=== PATIENT | female | born 1945 | race Caucasian/White ===

== ENCOUNTER 2023-02-11 11:11 | Day surgery (SDC) | payer MEDICARE ==
[2023-02-11] MEDS ORDERED: LACTATED RINGERS 1,000 ML IV ONE (11:40)
[2023-02-11 11:52] VITALS: TEMP 98
[2023-02-11] MEDS ORDERED: fentaNYL (PF) 50 MCG/ML 2 ML AMP ONE (11:54)
[2023-02-11] MEDS ORDERED: MIDAZOLAM 2 MG/2 ML VIAL ONE (11:54)
[2023-02-11] MEDS ORDERED: LACTATED RINGERS 1,000 ML IV SCH (12:00)
[2023-02-11] MEDS ORDERED: ROPIVACAINE 5MG/ML 20ML VIAL ONE (12:00)
[2023-02-11] MEDS ORDERED: IV FLUID CONTINUATION 1,000 ML IV ONE (12:23)
--- NOTE | 2023-02-11 12:25 | P.PCN ---
Date of Procedure: 02/11/23 Description of Procedure: PREOPERATIVE DIAGNOSIS: 1-Lumbar Spondylosis with Facet Arthropathy without myelopathy. 2- Lumber degenerative disc disease. POSTOPERATIVE DIAGNOSIS: 1- Lumbar Spondylosis with Facet Arthropathy without myelopathy. 2- Lumber degenerative disc disease. PROCEDURES : Right Radiofrequency thermocoagulation, L4 , and L5 medial branch, with fluoroscopic guidance (fluoroscopy images available in the radiology department) ( to denervate the facet joint at right L4-5 ,and L5-S1 levels ). ANESTHESIA: Monitored anesthesia care as per anesthesia department EBL: Minimal PROCEDURE INDICATION: The patient with low back pain secondary to lumbar facet arthropathy who had more than 50% relief of her pain with previous diagnostic lumbar medial branch block with bupivacaine. PROCEDURE DESCRIPTION / TECHNIQUE: The patient was seen and identified in the preoperative area. Risks, benefits, complications, including but not limited to risk of infection ,bleeding , allergic reactions to the medications and no complete pain releife , and alternatives were discussed with the patient, the patient agreed to proceed with the procedure and signed the consent. IV was started. Vital signs remained stable throughout the procedure. Patient was taken to the OR and time out was completed. The patient was placed in the prone position on the procedure table. The lumber area was prepped and draped in the usual sterile fashion. . Vital signs were closely monitored during the procedure .IV sedation was used during the procedure to decrease patients anxiety. Using AP and then oblique fluoroscopy, the ``eye of the Nilo dog corresp onding to the connection between the superior and transverse articular processes of right L4, and L5 were identified, marked, and localized with 1% lidocaine. Subsequently, a 18 [id number] radiofrequency cannula with a 10-mm active tip was advanced guided by fluoroscopy to each of the``eyes of the Nilo dog at right L4, and L5 and at the junction of superior articular process with right ala of the sacrum. Each site then underwent sensory testing at 50 Hz and 0 to 1 volt and motor testing at 2.5 Hz and 0 to 3 volt with local stimulation, but no radicular symptoms down the legs. Thereafter each sites underwent radiofrequency thermocoagulation at 80 degrees celsius for 90 seconds after injecting 0.5 ml of PF Ropivacaine 1ml, then after the thermocoagulation done , At the end of the procedure, the skin was cleansed and bandages were applied. COMPLICATIONS: No acute complications. DISPOSITION / PLANS: The patient was placed in a supine position and transferred to the recovery area in a stable condition for observation and was discharged from the recovery room after meeting discharge criteria. Home discharge instructions given to the patient by the staff. The patient was reexamined prior to discharge. The patient will schedule a follow up in the clinic in 4 weeks.
--- NOTE | 2023-02-11 12:38 | FL ---
EXAMINATION TYPE: FL guided pain mgmt statistic DATE OF EXAM: 02/11/2023 HISTORY: Fluoroscopy time Total dose area product (DAP) in uGy*m?, mGy*cm? (or similar): 0.99367 IMPRESSION: 1. Fluoroscopy time.
[2023-02-11 13:00] VITALS: BP 134/64; PULSE 56; RESP 18
== END 2023-02-11 13:12 | disposition home or self-care (01) ==
LOC: ORPAIN 11:11
PROVIDERS: ATTEND Pain Medicine Interventional Pain Medicine
DX: M51.36 Other intervertebral disc degeneration, lumbar region (principal); M47.816 Spondylosis without myelopathy or radiculopathy, lumbar region; I10 Essential (primary) hypertension; F32.A Depression, unspecified; M19.90 Unspecified osteoarthritis, unspecified site; Z79.82 Long term (current) use of aspirin; Z79.2 Long term (current) use of antibiotics; Z79.899 Other long term (current) drug therapy; Z90.49 Acquired absence of other specified parts of digestive tract; Z96.652 Presence of left artificial knee joint; Z90.710 Acquired absence of both cervix and uterus; Z98.890 Other specified postprocedural states
CPT/HCPCS: 64635; 64636; J2250; J3010; J2795

== ENCOUNTER → 2024-02-23 | Outpatient (CLI) | payer MEDICARE ==
[2024-02-23 11:21] LABS: African American GFR (CKD) >90 (>60 ml/min/1.73 sqM); Blood Urea Nitrogen 20 mg/dL (7-17); Non-African American GFR(CKD) >90 (>60 ml/min/1.73 sqM)
--- NOTE | 2024-02-23 13:10 | CT ---
EXAMINATION TYPE: CT abdomen pelvis w con CT DLP: 2049 mGycm, Automated exposure control for dose reduction was used. DATE OF EXAM: 02/23/2024 12:42 PM COMPARISON: None CLINICAL INDICATION:Female, 78 years old with history of LUQ mass; LUQ mass TECHNIQUE: Standard CT of the abdomen and pelvis following the administration of 100 cc of Isovue 3 00 IV contrast material and oral contrast. Coronal and sagittal reformats were performed. FINDINGS: LOWER CHEST: Minimal posterior dependent subsegmental atelectasis is noted. Mild cardiomegaly. Left l ower lobe calcified granuloma. ABDOMEN LIVER: Unremarkable GALLBLADDER AND BILE DUCTS: The gallbladder is surgically absent. No biliary duct dilatation. PANCREAS: Unremarkable. SPLEEN: Couple of punctate calcified granulomas. ADRENAL GLANDS: Unremarkable. KIDNEYS AND URETERS: No evidence of hydronephrosis or renal calculus. The kidneys enhanced symmetrica lly. Left mid kidney 3.5 cm simple cyst. Additional posterior left lower pole exophytic 1.3 cm simple cyst. Contrast is demonstrated within both collecting systems on the delayed phase. PELVIS BLADDER: Contrast is demonstrated within the urinary bladder on the delayed phase. Cystocele demonstr ated. REPRODUCTIVE: The uterus is surgically absent. ABDOMEN & PELVIS STOMACH AND BOWEL: Small hiatal hernia, duodenum is unremarkable. Scattered distal colonic diverticul osis without evidence for acute diverticulitis. Mild to moderate colonic enteric contrast reaches the distal small bowel. The appendix is within normal limits. Stool burden. No evidence of bowel obstruc tion. PERITONEUM: No evidence of pneumoperitoneum or free fluid. VASCULATURE: Moderate atherosclerotic calcifications are present throughout the abdominal aorta and i ts branches. No evidence of aortic aneurysm. Pelvic phleboliths. MUSCULOSKELETAL: No acute osseous abnormalities. Post fixation changes of the left proximal femur wit h intramedullary sal and screw. Multilevel degenerative disc disease. Grade 1 anterolisthesis of L5 o n S1 without evidence of pars defects. Mild retrolisthesis L3-L4. LYMPH NODES: No evidence for lymphadenopathy. SOFT TISSUE/ABDOMINAL WALL: Unremarkable IMPRESSION: 1. No acute abdominal/pelvic process. No evidence for suspicious mass. 2. Colonic diverticulosis without evidence for acute articular disease. 3. Left renal simple-appearing cysts. 4. Cystocele. 5. Sequelae of prior granulomatous disease. 6. Small hiatal hernia. [facility], , 02/23/2024 1:07 PM
== END | disposition home or self-care (01) ==
LOC: RADCTMAIN 10:39
PROVIDERS: ATTEND Internal Medicine Medical Oncology
DX: C43.9 Malignant melanoma of skin, unspecified (principal); K57.30 Diverticulosis of large intestine without perforation or abscess without bleeding; N81.10 Cystocele, unspecified; K44.9 Diaphragmatic hernia without obstruction or gangrene; N28.1 Cyst of kidney, acquired
CPT/HCPCS: 82565; 84520; 74177; 36415; Q9967